=== PATIENT | female | born 1995 | race Hispanic/Latino ===

== ENCOUNTER 2023-03-06 17:54 | Observation (INO) | payer OTHER ==
[2023-03-06 18:34] VITALS: BP 107/65
--- NOTE | 2023-03-06 19:46 | PR ---
[facility] [address] [facility] [place] [address] Signed AP Progress Notes Datetime Report Generated by CPN: 03/06/2023 19:46 Chief Complaint: contractions--definitely present and she can feel them with some discomfort. PHYSICAL EXAM: [id number] Impression: IUP at 29.2 wks Contractions Plan: Check fFN VITAL SIGNS: [id number] Vital Signs: Reviewed; Within Normal Limits EXAM: [id number] Contraction Comments: q 2 to 3 min MEMBRANES: [id number] Membranes: Intact FETUS A: [id number] FHR Baseline: 120 Variability: Moderate 6-25bpm Accelerations: 15X15 Deceleration: None FHR Category: Category I FETUS B: [id number] PROGRESS NOTES: [id number] Signing Physician: Luisa Marin MD Copies: ~ *Electronically Signed* 03/06/231945 LUISA MARIN MD PATIENT NAME: AJ SAMANO PROGRESS NOTE DATE OF : [birth year] PHYSICIAN: LUISA MARIN MD RPT #: [id number] REPORT IS CONFIDENTIAL AND NOT TO BE RELEASED WITHOUT AUTHORIZATION
[2023-03-06 19:52] LABS: BILIRUBIN, URINE NEGATIVE (negative); BLOOD/HGB, URINE NEGATIVE (Negative); KETONE, URINE NEGATIVE (Negative); LEUK ESTERASE, URINE NEGATIVE (negative); NITRITE, URINE NEGATIVE (negative)
[2023-03-06 19:58] LABS: BACTERIA, URINE NONE SEEN /hpf (negative); CASTS, URINE NONE SEEN \\lpf; COLLECTION TYPE, URINE CLEAN CATCH; CRYSTALS, URINE NONE SEEN (0-1+); EPITHELIAL CELLS, URINE NONE SEEN /lpf (0-1+); RED BLOOD CELLS, URINE 0-1 /hpf (0-5); REFLEX CULTURE, URINE No (No); WHITE BLOOD CELLS, URINE 0-1 /HPF (0-5)
[2023-03-06 20:38] LABS: HEMATOCRIT 34.7 % (35.0-50.0); HEMOGLOBIN 11.8 g/dL (12.0-18.0); MCH 32.1 (27-36); MCV 94.4 fl (81-99); RBC 3.67 M/ul (4.3-5.7); RDW 13.2 (10.5-15.0)
--- NOTE | 2023-03-06 21:12 | PR ---
[facility] [address] [place], [place] [address] Signed AP Progress Notes Datetime Report Generated by CPN: 03/06/2023 21:12 Chief Complaint: contractions seem a little less often now PHYSICAL EXAM: [id number] Physical Exam Comments: U/S Cx 5.45 cm, JESSICA 12.77, no evidence of abruption fFN Neg H/H 11.8/34.7, WBC 10.1, plat 235k U/A neg Impression: IUP at 29.2 wks with contractions though there is no evidence of labor at this time. No obvious abruption by U/S and no bleeding. Will give terb now and continue with Procardia overnight with continuous monitoring. Plan: SQ terb Continuous monitoring Pt updated about plan VITAL SIGNS: [id number] Vital Signs: Reviewed; Within Normal Limits EXAM: [id number] Dilatation: 0.0 Contraction Comments: q 2 to 3 min MEMBRANES: [id number] Membranes: Intact FETUS A: [id number] FHR Baseline: 120 Variability: Moderate 6-25bpm Accelerations: 15X15 Deceleration: None FHR Category: Category I FETUS B: [id number] PROGRESS NOTES: [id number] Signing Physician: Luisa Marin MD Copies: ~ *Electronically Signed* 03/06/232111 LUISA MARIN MD PATIENT NAME: AJ SAMANO PROGRESS NOTE DATE OF : 94 PHYSICIAN: LUISA MARIN MD RPT #: [id number] REPORT IS CONFIDENTIAL AND NOT TO BE RELEASED WITHOUT AUTHORIZATION
[2023-03-07 08:48] VITALS: BP 103/57
--- NOTE | 2023-03-07 09:14 | PR ---
[facility] [address] [place], [place] [address] Signed AP Progress Notes Datetime Report Generated by ANDRESSA: 03/07/2023 09:14 Chief Complaint: Slept well overnight til approx 0330 when started having ctx again. She did get another dose of terb and then was able to sleep again. When breakfast arrived, she started having more ctx again. She does not feel they are very strong currently. She denies any bleeding. She reports GFM. PHYSICAL EXAM: [id number] General: Normal Genitourinary Exam: Normal Physical Exam Comments: Abdomen is soft, nontender Impression: 27 yo X1S4YED7 at 29.3 wks with contractions following some abdominal trauma. There is no evidence of abruption other than the contractions and baby looks very good. Her cervix is also unchanged. She may be a pt who does contract frequently. Plan: Continue /contraction monitoring VITAL SIGNS: [id number] Vital Signs: Reviewed; Within Normal Limits EXAM: [id number] Dilatation: 0.0 Contraction Comments: q 2 to 3 min MEMBRANES: [id number] Membranes: Intact FETUS A: [id number] FHR Baseline: 120 Variability: Moderate 6-25bpm Accelerations: 15X15 Deceleration: None FHR Category: Category I FETUS B: [id number] PROGRESS NOTES: [id number] Signing Physician: Luisa Marin MD Copies: ~ *Electronically Signed* 03/07/23 0914 LUISA MARIN MD PATIENT NAME: AJ SAMANO PROGRESS NOTE DATE OF : 94 PHYSICIAN: LUISA MARIN MD RPT #: [id number] REPORT IS CONFIDENTIAL AND NOT TO BE RELEASED WITHOUT AUTHORIZATION
--- NOTE | 2023-03-07 13:00 | PR ---
[facility] [address] [facility] [place], [place] [address] Signed AP Progress Notes Datetime Report Generated by ANDRESSA: 03/07/2023 13:00 Chief Complaint: Ctx continue and seem stronger the last half hr. Denies any bleeding, leaking. Her anxiety has resolved. PHYSICAL EXAM: [id number] General: Normal Genitourinary Exam: Normal Physical Exam Comments: Abdomen is soft, nontender Impression: 28 yo G3N4NUT2 now at 29.3 wks w/ contractions that continue. Has had minimal response to Procardia. Had recent episode of anxiety and tachycardia which has improved but terbutaline may worsen these symptoms. I think Indocin may be helpful in this instance to help with the contractions. Plan: Indocin 50 mg po q 6 hrs for 8 doses VITAL SIGNS: [id number] Vital Signs: Reviewed; Within Normal Limits EXAM: [id number] Dilatation: 0.0 Contraction Comments: q 2 to 3 min MEMBRANES: [id number] Membranes: Intact FETUS A: R0478069 FHR Baseline: 120 Variability: Moderate 6-25bpm Accelerations: 15X15 Deceleration: None FHR Category: Category I FETUS B: [id number] PROGRESS NOTES: [id number] Signing Physician: Luisa Marin MD Copies: ~ *Electronically Signed* 03/07/23 1300 LUISA MARIN MD PATIENT NAME: AJ SAMANO PROGRESS NOTE DATE OF : 94 PHYSICIAN: LUISA MARIN MD RPT #: [id number] REPORT IS CONFIDENTIAL AND NOT TO BE RELEASED WITHOUT AUTHORIZATION
--- NOTE | 2023-03-07 17:15 | PR ---
[facility] [address] [facility] [place], [place] [address] Signed AP Progress Notes Datetime Report Generated by CPN: 03/07/2023 17:15 Chief Complaint: CTX continue but seemed to be almost gone when she was asleep. As soon as she woke up, the ctx restarted w/o any change in position. PHYSICAL EXAM: [id number] General: Normal Genitourinary Exam: Normal Physical Exam Comments: Abdomen is soft, nontender Impression: 28 yo [id number] now at 29.3 wks w/ continued ctx though no cervical change. Baby still looks excellent. Plan: Continue indomethacin Continue monitoring VITAL SIGNS: [id number] Vital Signs: Reviewed; Within Normal Limits EXAM: [id number] Dilatation: 0.0 Contraction Comments: q 2 to 3 min MEMBRANES: [id number] Membranes: Intact FETUS A: N0071156 FHR Baseline: 120 Variability: Moderate 6-25bpm Accelerations: 15X15 Deceleration: None FHR Category: Category I FETUS B: [id number] PROGRESS NOTES: [id number] Signing Physician: Luisa Marin MD Copies: ~ *Electronically Signed* 03/07/23 1715 LUISA MARIN MD PATIENT NAME: AJ SAMANO PROGRESS NOTE DATE OF : 94 PHYSICIAN: LUISA MARIN MD RPT #: [id number] REPORT IS CONFIDENTIAL AND NOT TO BE RELEASED WITHOUT AUTHORIZATION
--- NOTE | 2023-03-07 19:51 | PR ---
[facility] [address] [facility] [place], [place] [address] Signed AP Progress Notes Datetime Report Generated by CPN: 03/07/2023 19:51 Chief Complaint: contractions / Abd trauma in PHYSICAL EXAM: [id number] General: Normal HEENT: Normal Genitourinary Exam: Normal Physical Exam Comments: Uterus soft and nontender. No bruising. Impression: IUP @ 29w3d Abd trauma; no s/sx abruption Rodri Chaudhry contractions Reactive NST Plan: Pt seen and evaluated. Doing very well. Denies painful contractions / bleeding. Reviewed plan of care. All questions answered. Anticipate d/c in morning VITAL SIGNS: [id number] Vital Signs: Reviewed; Within Normal Limits EXAM: [id number] Dilatation: 0.0 Contraction Comments: q 2 to 3 min MEMBRANES: [id number] Membranes: Intact FETUS A: [id number] FHR Baseline: 120 Variability: Moderate 6-25bpm Accelerations: 15X15 Deceleration: None FHR Category: Category I FETUS B: [id number] PROGRESS NOTES: [id number] Signing Physician: Tamia Snider DO Copies: ~ *Electronically Signed* 03/07/231950 TAMIA SNIDER (KRISTINE) DO PATIENT NAME: AJ SAMANO PROGRESS NOTE DATE OF : 94 PHYSICIAN: TAMIA SNIDER) DO RPT #: [id number] REPORT IS CONFIDENTIAL AND NOT TO BE RELEASED WITHOUT AUTHORIZATION
--- NOTE | 2023-03-07 20:41 | EKG ---
[facility] [address] [facility] [place] [address] Signed Normal sinus rhythm Normal ECG No previous ECGs available Confirmed by Ankush De Dios MD () on 03/07/2023 8:40:49 PM Electronically Signed By: ANKUSH DE DIOS MD 03/07/232040 PATIENT NAME: AJ SAMANO Electrocardiogram DATE OF : 94 PHYSICIAN: ANKUSH DE DIOS MD REPORT #: [id number] REPORT IS CONFIDENTIAL AND NOT TO BE RELEASED WITHOUT AUTHORIZATION
--- NOTE | 2023-03-08 08:33 | PR ---
[facility] [address] [place], [place] [address] Signed AP Progress Notes Datetime Report Generated by ANDRESSA: 03/08/2023 08:33 Chief Complaint: Slept well overnight and has had minimal contractions. PHYSICAL EXAM: [id number] General: Normal HEENT: Normal Abdomen: Abnormal Genitourinary Exam: Normal Physical Exam Comments: Abdomen is soft, nontender, gravid Impression: 28 yo K3G6Tux2 now at 29.4 wks admitted initially after abdominal trauma and contractions who has resolved her contractions at this time. She is due for her 4th dose indomethacin this am. I think she can be discharged at this time. She does need 3 hr GTT as she did not pass the 1 hr. She would like to do this while here as she does not have a ride until 3 pm. Plan: 3 hr GTT today D/C home after F/U Mon Pelvic rest Limited activity VITAL SIGNS: [id number] Vital Signs: Reviewed; Within Normal Limits EXAM: [id number] Dilatation: 0.0 Contraction Comments: q 2 to 3 min MEMBRANES: [id number] Membranes: Intact FETUS A: [id number] FHR Baseline: 120 Variability: Moderate 6-25bpm Accelerations: 15X15 Deceleration: None FHR Category: Category I FETUS B: [id number] PROGRESS NOTES: [id number] Signing Physician: Luisa Marin MD *Electronically Signed* 03/08/23 0833 LUISA MARIN MD PATIENT NAME: AJ SAMANO PROGRESS NOTE DATE OF : 94 PHYSICIAN: LUISA MARIN MD RPT #: [id number] REPORT IS CONFIDENTIAL AND NOT TO BE RELEASED WITHOUT AUTHORIZATION
== END 2023-03-08 12:35 | disposition home or self-care (01) ==
LOC: FBCO 17:54 → FBC 18:18
PROVIDERS: ADMIT Obstetrics & Gynecology; ATTEND Obstetrics & Gynecology
DX: O9A.213 Injury, poisoning and certain other consequences of external causes complicating pregnancy, third trimester (principal); S39.91XA Unspecified injury of abdomen, initial encounter; W51.XXXA Accidental striking against or bumped into by another person, initial encounter; Z3A.29 29 weeks gestation of pregnancy
CPT/HCPCS: 36415; 76815; 76817; 81001; 82731; 82947; 85027; 93005; 93010; A9270; G0378; J3105; Q0177